=== PATIENT | female | born 1960 | race Caucasian/White ===

== ENCOUNTER → 2020-09-25 | Outpatient (CLI) | payer OTHER | LOC: EXRD 08:48 | DX: R74.8 Abnormal levels of other serum enzymes (principal) | CPT/HCPCS: 76700 ==

== ENCOUNTER → 2020-10-30 | Outpatient (CLI) | payer OTHER | LOC: CT 10-18 09:30 | DX: N28.9 Disorder of kidney and ureter, unspecified (principal) | CPT/HCPCS: 36415; 74170; 82565; Q9967 ==

== ENCOUNTER → 2020-11-06 | Outpatient (CLI) | payer OTHER ==
[2020-11-06 13:42] LABS: HEMOGLOBIN 13.5 gm/dl (12.3-15.3); RED BLOOD COUNT 4.7 M/UL (4.00-5.10); WHITE BLOOD COUNT 13.4 K/UL (4.5-11.0)
[2020-11-06 14:29] LABS: BUN/CREATININE RATIO 15 (0-10)
== END ==
LOC: LAB 13:18
PROVIDERS: Nurse Practitioner Family
DX: R50.9 Fever, unspecified (principal); R19.7 Diarrhea, unspecified; R53.83 Other fatigue; R52 Pain, unspecified; R11.2 Nausea with vomiting, unspecified
CPT/HCPCS: 36415; 71046; 80053; 85025; 85379; 86140

== ENCOUNTER 2021-08-20 17:44 | Emergency (ER) | payer OTHER ==
[~2021-08-20] VITALS: Ht 165.1 cm; Wt 81.6 kg
== END 2021-08-20 21:10 | disposition home or self-care (01) ==
LOC: ER1 17:44
DX: U07.1 COVID-19 (principal); Z23 Encounter for immunization; Z85.3 Personal history of malignant neoplasm of breast; Z88.5 Allergy status to narcotic agent; Z88.0 Allergy status to penicillin
CPT/HCPCS: 99283; M0245

== ENCOUNTER → 2022-05-29 | Outpatient (CLI) | payer OTHER | LOC: KOH-I 08:06 | DX: D72.10 Eosinophilia, unspecified (principal); R91.8 Other nonspecific abnormal finding of lung field | CPT/HCPCS: 71046 ==